=== PATIENT | male | born 1980 | race Caucasian/White ===

== ENCOUNTER → 2020-09-26 | Outpatient (CLI) | payer OTHER ==
[~2020-09-26] MED LIST: CARAFATE1 GM PO; OMEPRAZOLE40 MG PO; TORADOL 10 MG T10 MG PO; VOLTAREN EC 5050 MG PO; ZOFRAN4 MG PO
== END ==
LOC: KOH-I 09-22 16:30
DX: J32.0 Chronic maxillary sinusitis (principal)
CPT/HCPCS: 70486

== ENCOUNTER → 2021-02-13 | Outpatient (CLI) | payer OTHER | LOC: KOH-I 10:59 | DX: R07.9 Chest pain, unspecified (principal) | CPT/HCPCS: 71046 ==

== ENCOUNTER → 2021-03-06 | Outpatient (CLI) | payer OTHER | LOC: HEART 5 10:41 | DX: R07.9 Chest pain, unspecified (principal) ==

== ENCOUNTER → 2021-12-24 | Outpatient (CLI) | payer OTHER | LOC: SLEEP 14:09 | DX: Z87.891 Personal history of nicotine dependence (principal); R06.02 Shortness of breath; G47.33 Obstructive sleep apnea (adult) (pediatric) | CPT/HCPCS: 95810 ==

== ENCOUNTER → 2022-01-18 | Outpatient (CLI) | payer OTHER | LOC: KOH-I 15:37 | DX: M25.511 Pain in right shoulder (principal) | CPT/HCPCS: 73030 ==